=== PATIENT | male | born 1990 | race Caucasian/White ===

== ENCOUNTER 2024-09-09 16:54 | Outpatient (CLI) | payer OTHER, SELFPAY | END 2024-09-09 16:55 | disposition home or self-care (01) | PROVIDERS: PCP Physician Assistant Medical; Visit Provider Physician Assistant Medical | DX: Z00.00 Encounter for general adult medical examination without abnormal findings (principal); Z13.228 Encounter for screening for other metabolic disorders; Z13.6 Encounter for screening for cardiovascular disorders; Z11.4 Encounter for screening for human immunodeficiency virus [HIV]; Z11.59 Encounter for screening for other viral diseases | CPT/HCPCS: 80053; 80061; 86703; 86803 ==

== ENCOUNTER 2024-09-23 07:56 | Outpatient (CLI) | payer OTHER, SELFPAY ==
--- NOTE | 2024-09-23 09:02 | P.ANES_ITS ---
Anesthesia Charges Start Date/Time Anesthesia Start Date: 09/23/24 Anesthesia Start Time: 08:30 Stop Date/Time Anesthesia Stop Date: 09/23/24 Anesthesia Stop Time: 08:58 Coding CPT Codes CPT Codes: OZIEL LWR INTST SCR COLSC - 75213 ([id number]) P1 - NORMAL HEALTHY PATIENT, QK - FINISHING SUPERVISOR PLASTIC SHEETS 2-4 CNCRNT ANES PROC, QX - SHOT PEENING OPERATOR SVC W/ MED DIRECTION
--- NOTE | 2024-09-23 09:02 | W.ANESCHARGE ---
Anesthesia Charges Start Date/Time Anesthesia Start Date: 09/23/24 Anesthesia Start Time: 08:30 Stop Date/Time Anesthesia Stop Date: 09/23/24 Anesthesia Stop Time: 08:58 Coding CPT Codes CPT Codes: OZIEL LWR INTST SCR COLSC - 11504 ([id number]) P1 - NORMAL HEALTHY PATIENT, QK - BEAD FLIPPER 2-4 CNCRNT ANES PROC, QX - PARKING GARAGE MANAGER SVC W/ MED DIRECTION
--- NOTE | 2024-09-23 09:18 | W.ANESCHARGE ---
Anesthesia Charges Start Date/Time Anesthesia Start Date: 09/23/24 Anesthesia Start Time: 08:30 Stop Date/Time Anesthesia Stop Date: 09/23/24 Anesthesia Stop Time: 08:58 Coding CPT Codes CPT Codes: OZIEL LWR INTST SCR COLSC - 17984 ([id number]) P1 - NORMAL HEALTHY PATIENT, QK - LITHOGRAPHY CONTACT WORKER 2-4 CNCRNT ANES PROC, QX - CLIENT SUCCESS SPECIALIST SVC W/ MED DIRECTION
--- NOTE | 2024-09-23 09:18 | P.ANES_ITS ---
Anesthesia Charges Start Date/Time Anesthesia Start Date: 09/23/24 Anesthesia Start Time: 08:30 Stop Date/Time Anesthesia Stop Date: 09/23/24 Anesthesia Stop Time: 08:58 Coding CPT Codes CPT Codes: OZIEL LWR INTST SCR COLSC - 48905 ([id number]) P1 - NORMAL HEALTHY PATIENT, QK - HR ADMINISTRATOR 2-4 CNCRNT ANES PROC, QX - GRINDING SUPERVISOR SVC W/ MED DIRECTION
--- OUTSIDE RECORDS SUMMARY | 2024-09-24 01:22 | XMS_ITS | Clinical Summary ---
Author Organization [facility] Address [address] [place] [id number] Care Team Providers Care Head Waiter/Waitress Banquet Name Role Phone No Ref-Primary, Physician Primary Care Provider Allergies No known active allergies Medications No known medications Active Problems No known active problems Family History Medical History Relation Comments Cancer No family hx of Cerebrovascular Disease No family hx of Diabetes No family hx of Glaucoma No family hx of Hypertension No family hx of Macular Degeneration No family hx of Retinal detachment No family hx of Thyroid Disease No family hx of Social History Tobacco Use Types Packs/Day Years Used Date Smoking Tobacco: Never Smokeless Tobacco: Never Tobacco Cessation:Counseling Given: Not Answered Adolescent Education Answer Date Record ed Getting School Help Needed Not on file 12/23 Sex and Gender Information Value Date Recorded Sex Assigned at Not on file 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 Gender Identity Not on file Sexual Orientation Not on file Last Filed Vital Signs Vital Sign Reading Time Taken Comments Blood Pressure 118/78 09/27/2023 10:12 AM CDT Pulse 79 09/27/2023 10:12 AM CDT Temperature 36.7 C (98.1 F) 09/27/2023 10:12 AM CDT Respiratory Rate 14 09/27/2023 10:12 AM CDT Oxygen Saturation 98% 09/27/2023 10:12 AM CDT Inhaled Oxygen Concentration - - Weight 72.6 kg (160 lb) 09/27/2023 10:12 AM CDT Height - - Body Mass Index - - Plan of Treatment Health Maintenance Due Date Last Done Comments ADVANCE CARE PLANNING 1992 ANNUAL REVIEW OF HM ORDERS 1992 YEARLY PREVENTIVE VISIT 01/19/1995 HIV SCREENING 01/19/2007 HEPATITIS C SCREENING 01/19/2010 COVID-19 VACCINE ( season) 2023 07/18/2020, 06/27/2020 PHQ-2 (once per calendar year) 2024 INFLUENZA VACCINE (Season Ended) 2024 05/11/2023, 01/19/2021, 01/02/2020, Additional history exists DTAP/TDAP/TD VACCINE (8 - Td or Tdap) 08/29/2027 08/28/2017, 01/26/2010, 08/10/2004, Additional history exists ZOSTER VACCINE (1 of 2) 01/19/2042 HEPATITIS B VACCINE Completed 1992, 1992, 1992 MENINGITIS VACCINE Completed 02/11/2008 HPV VACCINE Aged Out No longer eligi ble based on patient's age to complete this topic PNEUMOCOCCAL VACCINE: PEDIATRICS (0 to 5 YEARS) AND AT-RISK PATIENTS (6 to 49 YEARS) Aged Out No longer eligible based on patient's age to complete this topic Insurance [employer] Care Teams Head Waiter/Waitress Banquet Relationship Specialty Start Date End Date No Ref-Primary, Physician PCP - General 08/30/22
== END 2024-09-23 07:57 | disposition home or self-care (01) ==
LOC: OP CLINIC 07:57
PROVIDERS: PCP Physician Assistant Medical; Visit Provider Internal Medicine
DX: K92.1 Melena (principal); D50.9 Iron deficiency anemia, unspecified
CPT/HCPCS: 00811; 00812; 45378; J2704